=== PATIENT | female | born 1985 | race Caucasian/White ===

== ENCOUNTER → 2017-02-08 | Outpatient (CLI) | payer BC ==
[~2017-02-08] MED LIST: ALBU90OI INH; CODGUAEL PO; ENDOCET 2.5-321 EACH PO; GUAI100SY PO; IBUP800 PO; LEVFLO500 PO; MEDR150I; PHENA200 PO; RXALBOI INH; RXCODGUASY PO; RXCYCL10 PO; TRAM50 PO; Verotin-Gr Cap1 EACH
== END | disposition home or self-care (01) ==
LOC: LAB SHORT 13:40
DX: J02.9 Acute pharyngitis, unspecified (principal)
CPT/HCPCS: 87070

== ENCOUNTER → 2020-03-09 | Outpatient (CLI) | payer OTHER ==
[~2020-03-09] MED LIST changes: +BUPR150ER PO; +CEPH500 PO
== END | disposition home or self-care (01) ==
LOC: LAB SHORT 14:00 → LAB 14:00
DX: R39.15 Urgency of urination (principal)
CPT/HCPCS: 87086

== ENCOUNTER 2020-12-02 11:38 | Day surgery (SDC) | payer OTHER ==
[~2020-12-02] VITALS: Ht 160 cm; Wt 84.7 kg
[2020-12-02] MEDS ORDERED: MAGCHL64ER (12:31)
[2020-12-02] MEDS ORDERED: NAPR500 PO (12:32)
--- NOTE | 2020-12-02 17:13 | NUR ---
12/02/20 1713 Haydee Valdivia PT MEDICATED FOR 6/10 PAIN WITH FENTANYL 25MCG IVP PER ORDERS. PT TOLERATING PO FLUIDS AND SNACKS WELL. VSS. WILL CONTINUE TO MONITOR
== END 2020-12-02 18:01 | disposition home or self-care (01) ==
LOC: ORSCSDS 11:38
PROVIDERS: Orthopaedic Surgery
PROC: 0MRN47Z Replacement of Right Knee Bursa and Ligament with Autologous Tissue Substitute, Percutaneous Endoscopic Approach (ICD-10-PCS; principal; 2020-12-02 12:45)
PROC: 0SBC4ZZ Excision of Right Knee Joint, Percutaneous Endoscopic Approach (ICD-10-PCS; principal; 2020-12-02 12:45)
PROC: 0SQC4ZZ Repair Right Knee Joint, Percutaneous Endoscopic Approach (ICD-10-PCS; principal; 2020-12-02 12:45)
DX: S83.511A Sprain of anterior cruciate ligament of right knee, initial encounter (principal); S83.241A Other tear of medial meniscus, current injury, right knee, initial encounter; S83.281A Other tear of lateral meniscus, current injury, right knee, initial encounter; M25.861 Other specified joint disorders, right knee; K21.9 Gastro-esophageal reflux disease without esophagitis; Z79.899 Other long term (current) drug therapy; E66.9 Obesity, unspecified; Z68.33 Body mass index [BMI] 33.0-33.9, adult
CPT/HCPCS: A9270; C1713; C1762; J0171; J0690; J1100; J2250; J2405; J2704; J3010; J7120

== ENCOUNTER → 2021-08-17 | Outpatient (CLI) | payer OTHER ==
[~2021-08-17] MED LIST changes: +MAGCHL64ER; +NAPR500 PO
[2021-08-18 16:11] LABS: HPV 16 Negative (Negative); HPV 18 Negative (Negative); HPV OTHER HR TYPES Negative (Negative)
== END | disposition home or self-care (01) ==
LOC: LAB SHORT 11:09 → LAB 11:09
PROVIDERS: Advanced Practice Midwife
DX: Z01.419 Encounter for gynecological examination (general) (routine) without abnormal findings (principal)
CPT/HCPCS: 87624; G0123

== ENCOUNTER 2021-10-28 14:06 | Emergency (ER) | payer OTHER ==
[~2021-10-28] VITALS: Ht 160 cm; Wt 86.2 kg
[2021-10-28 14:50] LABS: BASOPHILS ABSOLUTE AUTO 0.02 K/mm3 (0.00-0.23); BASOPHILS PERCENT AUTO 0 % (0-2); EOSINOPHILS ABSOLUTE AUTO 0.08 K/mm3 (0.00-0.68); EOSINOPHILS PERCENT AUTO 1 % (0-6); Hematocrit 40.9 % (33.0-51.0); Hemoglobin 13.6 g/dL (11.5-16.0); IMMATURE GRAN ABSOLUTE AUTO 0.02 K/mm3 (0.00-0.10); IMMATURE GRAN PERCENT AUTO 0 % (0-1); LYMPHOCYTES ABSOLUTE AUTO 2.28 K/mm3 (0.84-5.20); LYMPHOCYTES PERCENT AUTO 31 % (21-46); MONOCYTES ABSOLUTE AUTO 0.57 K/mm3 (0.16-1.47); MONOCYTES PERCENT AUTO 8 % (4-13); Mean Corpuscular HGB 26.9 pg (26.0-34.0); Mean Corpuscular HGB Conc 33.3 g/dL (31.5-36.5); Mean Corpuscular Volume 81 fL (80-100); Mean Platelet Volume 8.6 fL (9.1-12.4); NEUTROPHILS ABSOLUTE AUTO 4.39 K/mm3 (1.96-9.15); NEUTROPHILS PERCENT AUTO 60 % (41-73); Platelet Count 408 K/mm3 (150-400); RDW Coefficient Variation 13.2 % (11.7-14.2); RDW Standard Deviation 38.7 fL (35.1-46.3); Red Blood Cell Count 5.05 M/mm3 (3.80-5.20); White Blood Cell Count 7.36 K/mm3 (4.00-11.30)
[2021-10-28 15:09] LABS: Albumin, Blood 3.8 g/dL (3.4-5.0); Albumin/Globulin Ratio 1.1 (0.8-1.8); Bilirubin, Total 0.2 mg/dL (0.1-1.0); Bun/Creatinine Ratio 14.8 (12.0-20.0); Calcium, Blood 9.5 mg/dL (8.5-10.1); Creatinine, Blood 1.15 mg/dL (0.40-1.00); Globulin, Blood 3.6 g/dL (2.2-4.0); Potassium, Blood 3.7 mmol/L (3.5-5.5); Total Protein, Blood 7.4 g/dL (6.4-8.2)
== END 2021-10-28 17:34 | disposition home or self-care (01) ==
LOC: ER 14:06
PROVIDERS: Physician Assistant
DX: R00.2 Palpitations (principal); R07.9 Chest pain, unspecified; R42 Dizziness and giddiness; R11.0 Nausea; R06.02 Shortness of breath; R05.9 Cough, unspecified; Z79.899 Other long term (current) drug therapy; Z88.8 Allergy status to other drugs, medicaments and biological substances
CPT/HCPCS: 36415; 71045; 80053; 84484; 85025; 93005; 93010

== ENCOUNTER → 2021-11-16 | Outpatient (CLI) | payer OTHER | END | disposition home or self-care (01) | LOC: LAB SHORT 12:58 → LAB 12:58 | DX: R00.2 Palpitations (principal) | CPT/HCPCS: 84443 ==

== ENCOUNTER 2024-06-19 06:29 | Day surgery (SDC) | payer OTHER ==
[~2024-06-19] VITALS: Ht 160 cm; Wt 95.7 kg
[~2024-06-19 06:29] MED LIST changes: +FLUO10; +IBUP400; +LOSA25; +METPHE20; +NS 500 ML IV ONE; +OMEP20ER; +TRAZ50
[2024-06-19] MEDS ORDERED: SERT50 PO (06:53)
[2024-06-19] MEDS ORDERED: INTUNIV1 MG PO (06:54)
[2024-06-19] MEDS ORDERED: NS 500 ML IV ONE (07:01)
[2024-06-19] MEDS ORDERED: CeFAZolin Sodium 2,000 MG VIAL ONE (07:05)
[2024-06-19] MEDS ORDERED: Ondansetron HCl 2 MG / ML 2ML Vial ONE (07:42)
[2024-06-19] MEDS ORDERED: Ketorolac Tromethamine 30mg Vial ONE (07:42)
[2024-06-19] MEDS ORDERED: Dexamethasone Sod Phos 10 MG/ML 1ML VIAL ONE (07:42)
[2024-06-19] MEDS ORDERED: Midazolam HCl 1MG / ML 2ML Vial ONE (07:42)
[2024-06-19] MEDS ORDERED: propofoL 20 ML IV ONE ×2 (07:42→08:06)
[2024-06-19] MEDS ORDERED: Lidocaine 1%-Epineph 1:200000 30 ML SDV INJ ONE (07:59)
[2024-06-19 08:18] VITALS: BP 122/84
--- NOTE | 2024-06-19 08:42 | NUR ---
06/19/24 0842 DAYAN SHEN UP IN CHAIR, FEET ELEVATED, OP SITE ARM ELEVATED WITH ICE PACK IN PLACE. BOYFRIEND IN ROUTE FROM [place]. PT TOLERAATING DRINK AND SNACK.
== END 2024-06-19 09:05 | disposition home or self-care (01) ==
LOC: ORSCSDS 06:29
PROVIDERS: Orthopaedic Surgery
PROC: 01N54ZZ Release Median Nerve, Percutaneous Endoscopic Approach (ICD-10-PCS; principal; 2024-06-19 08:00)
DX: G56.02 Carpal tunnel syndrome, left upper limb (principal); K21.9 Gastro-esophageal reflux disease without esophagitis; J45.909 Unspecified asthma, uncomplicated; E66.01 Morbid (severe) obesity due to excess calories; Z68.37 Body mass index [BMI] 37.0-37.9, adult; Z79.899 Other long term (current) drug therapy
CPT/HCPCS: J0690; J1100; J1885; J2250; J2405; J2704; J7040